=== PATIENT | male | born 1955 | race Caucasian/White ===

== ENCOUNTER 2017-07-11 16:21 | Emergency (ER) | payer MEDICAID ==
[~2017-07-11] VITALS: Ht 170.2 cm; Wt 90.7 kg
[2017-07-11] MEDS ORDERED: Ketorolac 30mg Inj IV ONE (17:00)
[2017-07-11 17:19] LABS: APPEARANCE,URINE CLEAR; BILIRUBIN, URINE NEGATIVE (NEGATIVE); GLUCOSE, URINE (UA) NEGATIVE (NEGATIVE); KETONES,URINE NEGATIVE (NEGATIVE); LEUKOCYTE ESTERASE ,URINE NEGATIVE (NEGATIVE); NITRITE,URINE NEGATIVE (NEGATIVE); PH,URINE 7 (4.5-8.0); PROTEIN,URINE NEGATIVE (NEGATIVE); UROBILINOGEN,URINE 1 MG/DL (0.0-1.0)
[2017-07-11 17:28] LABS: BASOPHILS % (AUTO) 0.6 % (0.0-2.0); EOSINOPHILS % (AUTO) 2.6 % (0.0-3.0); HEMOGLOBIN 15.3 G/DL (14.2-18.0); LYMPHOCYTES % (AUTO) 30.5 % (20.0-45.0); MEAN CORPUSCULAR VOLUME 87 FL (80-99); MONOCYTES % (AUTO) 8.6 % (1.0-10.0); NEUTROPHILS % (AUTO) 57.8 % (45.0-75.0); PLATELET COUNT 175 K/UL (150-450); RED BLOOD COUNT 5.17 M/UL (4.70-6.10); WHITE BLOOD COUNT 6.2 K/UL (4.8-10.8)
[2017-07-11 17:29] LABS: COLOR,URINE YELLOW
[2017-07-11 17:36] LABS: ANION GAP 6 mmol/L (5-15); BLOOD UREA NITROGEN 18 mg/dL (7-18); CALCIUM 9.2 MG/DL (8.5-10.1); CARBON DIOXIDE 31 MMOL/L (21-32); CHLORIDE 105 MMOL/L (98-107); CREATININE 1.2 MG/DL (0.55-1.30); POTASSIUM 3.9 MMOL/L (3.5-5.1); SODIUM 142 MMOL/L (136-145)
[2017-07-11] MEDS ORDERED: BETIMOL5 M2 OP (17:37)
[2017-07-11] MEDS ORDERED: VITAMIN B12 COMPLEX SL (17:37)
[2017-07-11] MEDS ORDERED: VITAMIN D1000 UNI1 ORAL (17:37)
[2017-07-11 17:41] LABS: ALANINE AMINOTRANSFERASE 14 U/L (12-78); ALBUMIN 3.6 G/DL (3.4-5.0); ALBUMIN/GLOBULIN RATIO 0.9 (1.0-2.7); ALKALINE PHOSPHATASE 77 U/L (46-116); ASPARTATE AMINO TRANSFERASE 12 U/L (15-37); BILIRUBIN,TOTAL 0.5 MG/DL (0.2-1.0)
[2017-07-11] MEDS ORDERED: LEVOFLOXACIN500 MG ORAL (18:07)
[2017-07-11] MEDS ORDERED: METRONIDAZOLE500 MG ORAL (18:07)
[2017-07-11 18:31] VITALS: BP 116/76
[2017-07-11 18:35] VITALS: BP 116/76
--- NOTE | 2017-07-11 19:46 | Emergency Room Report ---
"History of Present Illness General Chief Complaint: Abdominal Pain Source: Patient Present Illness HPI Patient is a 61-year-old male presented after increased left lower quadrant pain. Patient is referred by his primary care physician. Patient was noted to have pain for several days. He denies any bloody stools or increased pain with ambulation. He had prior history of diverticulitis. He denies any fever. He reports having some normal bowel movements. Allergies: Coded Allergies: No Known Allergies (Unverified , 07/11/17) Patient History Past Medical History: see triage record Reviewed Nursing Documentation: PMH: Agreed, PSxH: Agreed Review of Systems All Other Systems: negative except mentioned in HPI Physical Exam Vital Signs Date Time Temp Pulse Resp B/P (MAP) Pulse Ox O2 Delivery O2 Flow Rate FiO2 07/11/17 16:29 97.4 79 18 118/81 96 Room Air 97.3 Sp02 EP Interpretation: reviewed, normal General Appearance: normal inspection, well appearing, no apparent distress, alert, GCS 15, non-toxic Head: atraumatic ENT: normal ENT inspection, hearing grossly normal, normal voice Neck: normal inspection, full range of motion, supple, no bony tend Respiratory: normal inspection, lungs clear, normal breath sounds, no respiratory distress, no retraction, no wheezing Cardiovascular #1: regular rate, rhythm, no edema Gastrointestinal: normal inspection, normal bowel sounds, soft, no guarding, no hernia, tenderness - left lower quadrant. Genitourinary: no CVA tenderness Musculoskeletal: normal inspection, back normal, normal range of motion Neurologic: normal inspection, alert, oriented x3, responsive, ground school instructor III-XII nml as tested, speech normal Psychiatric: normal inspection, judgement/insight normal, mood/affect normal Skin: normal inspection, normal color, no rash Medical Decision Making Diagnostic Impression: Primary Impression: Diverticulitis Additional Impression: Liver cyst ER Course Patient presented for abdominal pain. Differential diagnoses included ischemic bowel, appendicitis, perforated viscus, abdominal aortic aneurysm, inferior myocardial infarction, viral gastroenteritis, diverticulitis. Because of complexity of patient's case laboratory testing and imaging studies were ordered. Laboratory studies are notable for normal white blood count. I CT abdomen pelvis read by radiology showed diverticulitis of the the sigmoid and descending colon. There is no evidence of abscess or perforation. The patient is advised to have outpatient ultrasound of liver lesion seen on CT. The patient is advised to follow up with primary care doctor in 1-2 days. Patient is advised to return if any worsening condition or if any changes in status that are concerning. This report is dictated with [employer] offshore diver software which may occasionally lead to discrepancies related to use of this software. Labs Test 07/11/17 16:29 07/11/17 17:08 Urine Color Yellow Urine Appearance Clear Urine pH 7 (4.5-8.0) Urine Specific Hunker 1.010 (1.005-1.035) Urine Protein Negative (NEGATIVE) Urine Glucose (UA) Negative (NEGATIVE) Urine Ketones Negative (NEGATIVE) Urine Occult Blood Negative (NEGATIVE) Urine Nitrite Negative (NEGATIVE) Urine Bilirubin Negative (NEGATIVE) Urine Urobilinogen 1 MG/DL (0.0-1.0) Urine Leukocyte Esterase Negative (NEGATIVE) White Blood Count 6.2 K/UL (4.8-10.8) Red Blood Count 5.17 M/UL (4.70-6.10) Hemoglobin 15.3 G/DL (14.2-18.0) Hematocrit 45.0 % (42.0-52.0) Mean Corpuscular Volume 87 FL (80-99) Mean Corpuscular Hemoglobin 29.7 PG (27.0-31.0) Mean Corpuscular Hemoglobin Concent 34.0 G/DL (32.0-36.0) Red Cell Distribution Width 11.0 % (11.6-14.8) Platelet Count 175 K/UL (150-450) Mean Platelet Volume 7.7 FL (6.5-10.1) Neutrophils (%) (Auto) 57.8 % (45.0-75.0) Lymphocytes (%) (Auto) 30.5 % (20.0-45.0) Monocytes (%) (Auto) 8.6 % (1.0-10.0) Eosinophils (%) (Auto) 2.6 % (0.0-3.0) Basophils (%) (Auto) 0.6 % (0.0-2.0) Sodium Level 142 MMOL/L (136-145) Potassium Level 3.9 MMOL/L (3.5-5.1) Chloride Level 105 MMOL/L (98-107) Carbon Dioxide Level 31 MMOL/L (21-32) Anion Gap 6 mmol/L (5-15) Blood Urea Nitrogen 18 mg/dL (7-18) Creatinine 1.2 MG/DL (0.55-1.30) Estimat Glomerular Filtration Rate > 60 mL/min (>60) Glucose Level 107 MG/DL (74-106) Calcium Level 9.2 MG/DL (8.5-10.1) Total Bilirubin 0.5 MG/DL (0.2-1.0) Aspartate Amino Transf (AST/SGOT) 12 U/L (15-37) Alanine Aminotransferase (ALT/SGPT) 14 U/L (12-78) Alkaline Phosphatase 77 U/L (46-116) Total Protein 7.4 G/DL (6.4-8.2) Albumin 3.6 G/DL (3.4-5.0) Globulin 3.8 g/dL Albumin/Globulin Ratio 0.9 (1.0-2.7) Lipase 107 U/L (73-393) Last Vital Signs Date Time Temp Pulse Resp B/P (MAP) Pulse Ox O2 Delivery O2 Flow Rate FiO2 07/11/17 18:35 97.9 66 20 116/76 95 Room Air Status: improved Disposition: HOME, SELF-CARE Condition: Stable Scripts Metronidazole* (FLAGYL*) 500 Mg Tablet 500 MG ORAL BID, #14 TAB Prov: Hussein Parikh 07/11/17 Levofloxacin (LEVOFLOXACIN*) 500 Mg Tablet 500 MG ORAL DAILY, #10 TAB Prov: Hussein Parikh 07/11/17 Patient Instructions: Diverticulitis, [id number] Additional Instructions: Increase fiber intake. Return for any worsening Hussein Parikh Jul 11, 2017 19:46"
--- NOTE | 2017-07-12 08:20 | Diagnostic Imaging Report ---
Indication: Abdominal pain Technique: CT scan of the abdomen and pelvis was performed from the diaphragms to the symphysis pubis with intravenous contrast material only per specific request of the ordering physician.. 5 mm sections were generated. Axial, coronal, and sagittal images are presented. Dose: Total Dose Length Product - DLP [address] Dose Index - CTDIvol(s) 16.58 mGy. Automated exposure control was utilized for dose reduction. Comparison: 12/23/2007 Findings: Examination demonstrates multiple low density lesions throughout the liver measuring 25 and 10 mm.. Some of these are sharply circumscribed. Others are indeterminate. The gallbladder is collapsed. The spleen is unremarkable. The pancreas is normal. Adrenal glands are normal. The kidneys are normal. Calcification is noted in the aorta. The retroperitoneum is free of adenopathy. Numerous diverticula are noted in the colon. There is minimal pericolonic inflammatory change in the distal descending colon. The colon is normal in caliber. The appendix is not identified. The bladder is unremarkable. Prostate and seminal vesicles are normal. Impression: Diverticulosis with diverticulitis of the distal descending colon. Atherosclerotic change. Multiple hepatic hypodensities. Some of these probably represent cysts. Others are indeterminate. Further evaluation with ultrasound would be helpful for better evaluation of this. The above report is concordant with preliminary reading by [facility] . The CT scanner at [facility] is accredited by the [employer] and the scans are performed using protocols designed to limit radiation exposure to as low as reasonably achievable to attain images of sufficient resolution adequate for diagnostic evaluation.
== END 2017-07-11 18:36 | disposition home or self-care (01) ==
LOC: EMR 17:31
DX: K57.32 Diverticulitis of large intestine without perforation or abscess without bleeding (principal); K76.89 Other specified diseases of liver
CPT/HCPCS: 36415; 74177; 80053; 81003; 83690; 85025; 96374; 99284; J1885; Q9967

== ENCOUNTER 2017-12-31 11:59 | Emergency (ER) | payer MEDICAID ==
[~2017-12-31] VITALS: Ht 160 cm; Wt 90.7 kg
[~2017-12-31 11:59] MED LIST: BETIMOL5 M2 OP; LEVOFLOXACIN500 MG ORAL; METRONIDAZOLE500 MG ORAL; VITAMIN B12 COMPLEX SL; VITAMIN D1000 UNI1 ORAL
--- NOTE | 2017-12-31 12:36 | Emergency Room Report ---
History of Present Illness General Chief Complaint: Earache Source: Patient Present Illness HPI 62-year-old male presents to the emergency department complaining of 7 out of 10 in severity localized right ear pain 2 days. Patient reports foreign body sensation he denies fevers, chills, nausea or vomiting. Patient denies appreciable trauma he reports he's been using a Q-tip trying to clean out his ear. Patient reports pain is now radiating down towards the right side of his neck. His ear discharge. Denies dizziness. Reports some decreased hearing in that ear. Allergies: Coded Allergies: No Known Allergies (Unverified , 07/11/17) Patient History Past Medical History: see triage record Past Surgical History: none Pertinent Family History: none Immunizations: UTD Reviewed Nursing Documentation: PMH: Agreed; PSxH: Agreed Nursing Documentation-PMH Past Medical History: No History, Except For Hx Cardiac Problems: No Hx Hypertension: No Hx Pacemaker: No Hx Asthma: No Hx COPD: No Hx Diabetes: No Hx Cancer: No Hx Gastrointestinal Problems: Yes - diverticulosis Hx Dialysis: No History Of Psychiatric Problem: No Hx Neurological Problems: No Hx Cerebrovascular Accident: No Hx Seizures: No Review of Systems All Other Systems: negative except mentioned in HPI Physical Exam Vital Signs Date Time Temp Pulse Resp B/P (MAP) Pulse Ox O2 Delivery O2 Flow Rate FiO2 12/31/17 12:05 98.0 63 16 123/88 94 Room Air 98.1 Sp02 EP Interpretation: reviewed, normal General Appearance: no apparent distress, alert, GCS 15, non-toxic Head: normocephalic, atraumatic Eyes: bilateral eye normal inspection, bilateral eye PERRL ENT: hearing grossly normal, normal voice, uvula midline, moist mucus membranes , other - Ruptured TM of the right ear, scant dry blood noted, no tragal or external ear tenderness, TM is normal in color, not bulging. Neck: full range of motion, no meningismus, no bony tend Respiratory: lungs clear, normal breath sounds, speaking full sentences Cardiovascular #1: regular rate, rhythm Musculoskeletal: back normal, gait/station normal, normal range of motion, non- tender Neurologic: alert, oriented x3, responsive, motor strength/tone normal, sensory intact, speech normal, grossly normal Psychiatric: judgement/insight normal Skin: normal color, no rash, warm/dry, well hydrated Lymphatic: no adenopathy Medical Decision Making PA Attestation Dr. Barth is my supervising Physician whom patient management has been discussed with. Diagnostic Impression: Primary Impression: Tympanic membrane perforation Qualified Codes: H72.91 - Unspecified perforation of tympanic membrane, right ear ER Course 62-year-old male presents to the emergency department complaining of 7 out of 10 in severity localized right ear pain 2 days. Patient reports foreign body sensation he denies fevers, chills, nausea or vomiting. Patient denies appreciable trauma he reports he's been using a Q-tip trying to clean out his ear. Patient reports pain is now radiating down towards the right side of his neck. His ear discharge. Denies dizziness. Reports some decreased hearing in that ear. Ddx considered but are not limited to OM, OE, mastoiditis, TM perforation, FB Vital signs: are WNL, pt. is afebrile H&PE are most consistent with TM Rupture of the right ear, no evidence of infection. ORDERS: none required at this time, the diagnosis is clinical ED INTERVENTIONS: None required at this time. D/w pt. to D/C q-tip use. DISCHARGE: At this time pt. is stable for d/c to home. With PO ABX. Will provide printed patient care instructions, and any necessary prescriptions. Care plan and follow up instructions have been discussed with the patient prior to discharge. Last Vital Signs Date Time Temp Pulse Resp B/P (MAP) Pulse Ox O2 Delivery O2 Flow Rate FiO2 12/31/17 12:05 98.0 63 16 123/88 94 Room Air 98.1 Disposition: HOME, SELF-CARE Condition: Stable Patient Instructions: Eardrum Perforation Additional Instructions: Take medications as directed. Follow up with a Primary Care Provider in 3-5 days, even if your symptoms have resolved. --Please review list of primary care clinics, if you do not already have a primary care provider Return sooner to ED if new symptoms occur, or current symptoms become worse. - Please note that this Emergency Department Report was dictated using [employer] gat[employer]r technology software, occasionally this can lead to erroneous entry secondary to interpretation by the dictation equipment. Patrica Mejia Dec 31, 2017 12:36
[2017-12-31] MEDS ORDERED: IBUPROFEN400 MG ORAL (12:37)
[2017-12-31] MEDS ORDERED: ACETAMINOPHEN-1 EAC1 ORAL (12:37)
[2017-12-31 13:14] VITALS: BP 143/81
== END 2017-12-31 13:16 | disposition home or self-care (01) ==
LOC: EMR 12:42
DX: H72.91 Unspecified perforation of tympanic membrane, right ear (principal); K57.90 Diverticulosis of intestine, part unspecified, without perforation or abscess without bleeding
CPT/HCPCS: 99283

== ENCOUNTER 2018-06-26 16:32 | Emergency (ER) | payer MEDICAID ==
[~2018-06-26] VITALS: Ht 165.1 cm; Wt 95.3 kg
[~2018-06-26 16:32] MED LIST changes: +ACETAMINOPHEN-1 EAC1 ORAL; +IBUPROFEN400 MG ORAL
[2018-06-26 16:35] VITALS: BP 110/75
[2018-06-26] MEDS ORDERED: VITAMIN D1000 UNI1 ORAL (16:41)
[2018-06-26] MEDS ORDERED: ATORVASTATIN CA40 MG ORAL (16:41)
[2018-06-26] MEDS ORDERED: GABAPENTIN300 MG ORAL (16:41)
[2018-06-26] MEDS ORDERED: ASPIR 8181 MG ORAL (16:41)
[2018-06-26] MEDS ORDERED: Isovue-300 100ml vial INJ PRN (17:00)
[2018-06-26] MEDS ORDERED: Morphine Sulfate 4mg/ml Inj (IV/IM USE ONLY) IVP ONE (17:15)
[2018-06-26 17:23] LABS: APPEARANCE,URINE CLEAR; BILIRUBIN, URINE NEGATIVE (NEGATIVE); COLOR,URINE PALE YELLOW; GLUCOSE, URINE (UA) NEGATIVE (NEGATIVE); KETONES,URINE NEGATIVE (NEGATIVE); LEUKOCYTE ESTERASE ,URINE NEGATIVE (NEGATIVE); NITRITE,URINE NEGATIVE (NEGATIVE); PH,URINE 7 (4.5-8.0); PROTEIN,URINE NEGATIVE (NEGATIVE); UROBILINOGEN,URINE NORMAL MG/DL (0.0-1.0)
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
[2018-06-26 17:27] LABS: BASOPHILS % (AUTO) 1.4 % (0.0-2.0); EOSINOPHILS % (AUTO) 3.4 % (0.0-3.0); HEMATOCRIT 41.7 % (42.0-52.0); HEMOGLOBIN 14.2 G/DL (14.2-18.0); INR 1.1 (0.9-1.1); LYMPHOCYTES % (AUTO) 40.7 % (20.0-45.0); MEAN CORPUSCULAR VOLUME 88 FL (80-99); MONOCYTES % (AUTO) 8.9 % (1.0-10.0); NEUTROPHILS % (AUTO) 45.6 % (45.0-75.0); PLATELET COUNT 153 K/UL (150-450); RED BLOOD COUNT 4.75 M/UL (4.70-6.10); RED CELL DISTRIBUTION WIDTH 11.3 % (11.6-14.8); WHITE BLOOD COUNT 6.4 K/UL (4.8-10.8)
[2018-06-26 17:38] LABS: ANION GAP 7 mmol/L (5-15); BLOOD UREA NITROGEN 13 mg/dL (7-18); CALCIUM 8.9 MG/DL (8.5-10.1); CARBON DIOXIDE 27 MMOL/L (21-32); CHLORIDE 105 MMOL/L (98-107); POTASSIUM 3.3 MMOL/L (3.5-5.1); SODIUM 139 MMOL/L (136-145)
[2018-06-26 17:42] LABS: ALANINE AMINOTRANSFERASE 44 U/L (12-78); ALBUMIN 3.8 G/DL (3.4-5.0); ALBUMIN/GLOBULIN RATIO 1.1 (1.0-2.7); ALKALINE PHOSPHATASE 82 U/L (46-116); ASPARTATE AMINO TRANSFERASE 25 U/L (15-37); BILIRUBIN,TOTAL 0.6 MG/DL (0.2-1.0)
[2018-06-26 18:35] VITALS: BP 112/84
--- NOTE | 2018-06-26 19:01 | Diagnostic Imaging Report ---
EXAM: CT Abdomen and Pelvis With Intravenous Contrast CLINICAL HISTORY: PAIN TECHNIQUE: Axial computed tomography images of the abdomen and pelvis with intravenous contrast. CTDI is 0.15, 18.60 mGy and DLP is 1074 mGy-cm. One or more of the following dose reduction techniques were used: automated exposure control, adjustment of the mA and/or kV according to patient size, use of iterative reconstruction technique. COMPARISON: CT abdomen and pelvis dated 07/11/2017 FINDINGS: Lung bases: Dependent atelectasis. ABDOMEN: Liver: Multiple subcentimeter hypodensities within both hepatic lobes, which are nonspecific. These are unchanged. Gallbladder and bile ducts: Unremarkable. Pancreas: Unremarkable. Spleen: Unremarkable. Adrenals: Unremarkable. Kidneys and ureters: Unremarkable. Stomach and bowel: Question mild wall thickening of the sigmoid colon which may be secondary to under distention. Early colitis versus diverticulitis is not excluded. PELVIS: Appendix: Appendix is unremarkable. Bladder: Unremarkable. Reproductive: Unremarkable as visualized. ABDOMEN and PELVIS: Intraperitoneal space: Unremarkable. Bones/joints: Degenerative changes of the spine. No acute fracture. No dislocation. Soft tissues: Tiny fat-containing umbilical hernia. Vasculature: Vascular calcifications. No abdominal aortic aneurysm. Lymph nodes: Unremarkable. IMPRESSION: Question mild wall thickening of the sigmoid colon which may be secondary to under distention. Early colitis versus diverticulitis is not excluded.
[2018-06-26 19:20] VITALS: BP 108/86
[2018-06-26] MEDS ORDERED: IBUPROFEN600 MG ORAL (19:45)
[2018-06-26] MEDS ORDERED: PEPCID AC20 M2 PO (19:45)
[2018-06-26 19:51] VITALS: BP 108/86
== END 2018-06-26 19:50 | disposition home or self-care (01) ==
LOC: EMR 16:47
DX: R10.9 Unspecified abdominal pain (principal); K76.89 Other specified diseases of liver
CPT/HCPCS: 36415; 74177; 80053; 81003; 83690; 84484; 85025; 85610; 85730; 96374; 96375; 99284; J2270; J2405; Q9967; S0028

== ENCOUNTER 2018-10-27 00:03 | Emergency (ER) | payer MEDICAID ==
[~2018-10-27] VITALS: Ht 162.6 cm; Wt 90.7 kg
[~2018-10-27 00:03] MED LIST changes: +ASPIR 8181 MG ORAL; +ATORVASTATIN CA40 MG ORAL; +GABAPENTIN300 MG ORAL; +IBUPROFEN600 MG ORAL; +PEPCID AC20 M2 PO
[2018-10-27] MEDS ORDERED: NKM (00:10)
--- NOTE | 2018-10-27 00:15 | NUR ---
ED Nurse Note: RECIEVED PT FROM E WITH C/O NECK PAIN AT 8/10 SINCE AM, PT DENIES FALL OR INJURY TO AREA AND DENIES POSSIBLY SLEEPING WRONG, PT RATES PAIN AT 8/10, CONTINUOUS AND ACHING, DENIES CPK SOB, OR ANY OTHER PAIN OR DISCOMFORTS, PT GOWNED AND PLACED ON CARDIAC MONITORING.
--- NOTE | 2018-10-27 00:43 | Emergency Room Report ---
History of Present Illness General Chief Complaint: Neck Pain Source: Patient Present Illness [facility] This is a 63-year-old male with no past medical history. He presents with chief complaint of neck pain and headache. Onset for last 3 days. Started in his shoulder and then to his neck. Now rating up to his head. Pain is 9 out of 10. No nausea no vomiting. Worse with movement. No trauma. No focal deficit. No cough or congestion. [id number] medicine not helping. Allergies: Coded Allergies: No Known Allergies (Unverified , 07/11/17) Patient History Past Medical History: see triage record, old chart reviewed Past Surgical History: none Pertinent Family History: none Social History: Denies: smoking Immunizations: other Reviewed Nursing Documentation: PMH: Agreed; PSxH: Agreed Nursing Documentation-PMH Past Medical History: No History, Except For Hx Cardiac Problems: No Hx Hypertension: No Hx Pacemaker: No Hx Asthma: No Hx COPD: No Hx Diabetes: No Hx Cancer: No Hx Gastrointestinal Problems: Yes - diverticulosis Hx Dialysis: No Hx Neurological Problems: No Hx Cerebrovascular Accident: No Hx Seizures: No Review of Systems Eye: Denies: eye pain, blurred vision ENT: Denies: ear pain, nose congestion, throat swelling Respiratory: Denies: cough, shortness of breath Cardiovascular: Denies: chest pain, palpitations Gastrointestinal: Denies: abdominal pain, diarrhea, nausea, vomiting Musculoskeletal: Denies: back pain, joint pain Skin: Denies: rash Neurological: Reports: headache; Denies: numbness Endocrine: Denies: increased thirst, increased urine Hematologic/Lymphatic: Denies: easy bruising All Other Systems: negative except mentioned in HPI Physical Exam Vital Signs Date Time Temp Pulse Resp B/P (MAP) Pulse Ox O2 Delivery O2 Flow Rate FiO2 10/27/18 00:06 98.1 73 22 125/84 (98) 93 Room Air Vitals normal Sp02 EP Interpretation: reviewed, normal General Appearance: well appearing, no apparent distress, alert Head: normocephalic, atraumatic Eyes: bilateral eye PERRL, bilateral eye EOMI ENT: hearing grossly normal, normal pharynx Neck: tender - diffuse tenderness. Respiratory: chest non-tender, lungs clear, normal breath sounds Cardiovascular #1: regular rate, rhythm, no murmur Gastrointestinal: normal bowel sounds, non tender, no mass, no organomegaly, no bruit, non-distended Musculoskeletal: back normal, gait/station normal, normal range of motion Psychiatric: mood/affect normal Skin: warm/dry Medical Decision Making Diagnostic Impression: Primary Impression: Neck pain Additional Impression: Degenerative disc disease, cervical ER Course Patient with neck pain. CT scan showed severe degenerative changes. No evidence of meningitis. No evidence of dissection. Will discharge home. CT/MRI/US Diagnostic Results CT/MRI/US Diagnostic Results : Imaging Test Ordered: CT C-spine Impression Read by radiologist. Degenerative changes. Last Vital Signs Date Time Temp Pulse Resp B/P (MAP) Pulse Ox O2 Delivery O2 Flow Rate FiO2 10/27/18 00:06 98.1 73 22 125/84 (98) 93 Room Air Status: improved Disposition: HOME, SELF-CARE Condition: Stable Scripts Ibuprofen* (MOTRIN*) 600 Mg Tablet 600 MG ORAL THREE TIMES A DAY, #30 TAB 0 Refills Prov: Renaldo Baker MD 10/27/18 Hydrocodone/Acetaminophen 5-325* (HYDROCODONE/ACETAMINOPHEN 5-325*) 1 Each Tablet 1 TAB ORAL Q6H PRN for For Pain, #15 TAB 0 Refills Prov: Renaldo Baker MD 10/27/18 Additional Instructions: Follow-up with your doctor in a week. If not better, you may need an MRI. Return if symptoms worsen. Renaldo Baker MD Oct 27, 2018 00:43
[2018-10-27] MEDS ORDERED: Morphine Sulfate 4mg/ml Inj (IV USE ONLY) IVP ONE (00:45)
[2018-10-27 01:06] LABS: BASOPHILS % (AUTO) 1.3 % (0.0-2.0); EOSINOPHILS % (AUTO) 2.6 % (0.0-3.0); HEMOGLOBIN 14.6 G/DL (14.2-18.0); LYMPHOCYTES % (AUTO) 33.9 % (20.0-45.0); MEAN CORPUSCULAR VOLUME 85 FL (80-99); MONOCYTES % (AUTO) 7.7 % (1.0-10.0); NEUTROPHILS % (AUTO) 54.5 % (45.0-75.0); PLATELET COUNT 157 K/UL (150-450); RED BLOOD COUNT 4.94 M/UL (4.70-6.10); RED CELL DISTRIBUTION WIDTH 11.3 % (11.6-14.8); WHITE BLOOD COUNT 6.9 K/UL (4.8-10.8)
[2018-10-27 01:10] LABS: ANION GAP 6 mmol/L (5-15); BLOOD UREA NITROGEN 15 mg/dL (7-18); CALCIUM 9.1 MG/DL (8.5-10.1); CARBON DIOXIDE 26 MMOL/L (21-32); CHLORIDE 108 MMOL/L (98-107); CREATININE 0.8 MG/DL (0.55-1.30); POTASSIUM 3.3 MMOL/L (3.5-5.1); SODIUM 140 MMOL/L (136-145)
[2018-10-27] MEDS ORDERED: HYDROCODON-ACE1 EA15 ORAL (01:26)
[2018-10-27] MEDS ORDERED: IBUPROFEN600 MG ORAL (01:26)
--- NOTE | 2018-10-27 02:15 | NUR ---
ED Nurse Note: Pt being d/c to home, awake, alert and orineted x 4, medicated for pain, meds effective with pain level decreasing to 5/10, pt has on soft colar, ambulates well with steady gait, is present to drive pt home, no cp, no sob, iv line and armband removed without complications, pt given f/u info,a fter care instructions and re-verbalizes proper medication administration, nad noted during d/c to home.
[2018-10-27 02:25] VITALS: BP 125/84
--- NOTE | 2018-10-27 09:42 | Diagnostic Imaging Report ---
Indication: Neck pain. Technique: Continuous helical imaging of the cervical spine was obtained transaxially from the skull base to the upper thoracic spine. 2-D coronal and sagittal reformatted images were obtained. Automatic Exposure Control was utilized. Total Dose length Product (DLP): 386.[address] Dose Index Volume (CTDIvol): 20.71 mGy Comparison: None Findings: There is no acute fracture or malalignment identified. There is no soft tissue swelling identified. Moderate uncovertebral arthritis is demonstrated at multiple levels. Some of the intervertebral discs show narrowing and osteophytes. Bones are osteopenic. Mild calcification of the extracranial carotid arteries noted. Impression: No acute injury Moderate spondylosis Atherosclerotic disease [facility] has communicated the preliminary results to the Emergency Department. Their findings are largely concordant with this report. The CT scanner at [facility] is accredited by the [employer] and the scans are performed using dose optimization techniques as appropriate to a performed exam including Automatic Exposure control.
== END 2018-10-27 02:25 | disposition home or self-care (01) ==
LOC: EMR 00:42
DX: M54.2 Cervicalgia (principal); M50.30 Other cervical disc degeneration, unspecified cervical region; R51 Headache; K57.90 Diverticulosis of intestine, part unspecified, without perforation or abscess without bleeding
CPT/HCPCS: 36415; 72125; 80048; 85025; 96374; 96375; 99284; J2270; J2405

== ENCOUNTER 2019-03-06 13:38 | Emergency (ER) | payer MEDICAID ==
[~2019-03-06] VITALS: Ht 165.1 cm; Wt 93.0 kg
[~2019-03-06 13:38] MED LIST changes: +HYDROCODON-ACE1 EA15 ORAL; +NKM
--- NOTE | 2019-03-06 14:20 | NUR ---
ED Nurse Note: Patient walked in to ER from home due to headache and Rt shoulder pain 10/10 that radiates to Rt arm. Patient alert and oriented x4 and amulatory. Skin clean and intact. Calm and cooperative. No acute distress noted at this time.
[2019-03-06 14:29] VITALS: BP 119/81
--- NOTE | 2019-03-06 14:33 | NUR ---
ED Nurse Note: pt went down for CT in stable condition.
--- NOTE | 2019-03-06 14:55 | NUR ---
ED Nurse Note: pt came back from CT in stable condition.
--- NOTE | 2019-03-06 15:46 | Diagnostic Imaging Report ---
EXAM: CT Head Without Intravenous Contrast CLINICAL HISTORY: DIZZY TECHNIQUE: Axial computed tomography images of the head brain without intravenous contrast. CTDI is 12.1 mGy and DLP is 378.7 mGy-cm. One or more of the following dose reduction techniques were used: automated exposure control, adjustment of the mA and or kV according to patient size, use of iterative reconstruction technique. COMPARISON: No relevant prior studies available. FINDINGS: Brain: No intracranial hemorrhage or mass effect. No clear acute large vessel territorial infarct. Mild atrophy. Ventricles: Unremarkable. No ventriculomegaly. Bones joints: Unremarkable. No acute fracture. Soft tissues: Unremarkable. Sinuses: Mild frontoethmoidal mucosal thickening. Mastoid air cells: Unremarkable as visualized. No mastoid effusion. IMPRESSION: No acute intracranial process.
--- NOTE | 2019-03-06 15:49 | Diagnostic Imaging Report ---
EXAM: CT Cervical Spine Without Intravenous Contrast CLINICAL HISTORY: DIZZY TECHNIQUE: Axial computed tomography images of the cervical spine without intravenous contrast. CTDI is 12.1 mGy and DLP is 378.7 mGy-cm. One or more of the following dose reduction techniques were used: automated exposure control, adjustment of the mA and or kV according to patient size, use of iterative reconstruction technique. COMPARISON: 10 27 18. FINDINGS: Vertebrae: No acute fracture. Discs spinal canal neural foramina: Multilevel spondylosis including disc degeneration and facet and uncovertebral arthropathy. Appearance is similar to prior exam. Resulting minimal C3 and C4 retrolisthesis, likewise unchanged. Soft tissues: Unremarkable. IMPRESSION: No fracture or other acute osseous abnormality
--- NOTE | 2019-03-06 15:56 | NUR ---
ED Nurse Note: pt c/o Rt shoulder pain 12/26. ERPA made aware.
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
--- NOTE | 2019-03-06 16:01 | Diagnostic Imaging Report ---
EXAM: XR Right Shoulder Complete, 2 or More Views CLINICAL HISTORY: TRAUMA TECHNIQUE: Two or more views of the right shoulder. COMPARISON: No relevant prior studies available. FINDINGS: Bones joints: Degeneration and osteophyte formation to the right glenohumeral and acromioclavicular joints. No acute fracture. No dislocation. Soft tissues: Unremarkable. IMPRESSION: No fracture or dislocation.
[2019-03-06] MEDS ORDERED: LIDODERM700 M1 TOPIC (16:02)
[2019-03-06] MEDS ORDERED: IBU800 MG PO (16:02)
[2019-03-06] MEDS ORDERED: ROBAXIN-500MG ORAL (16:02)
[2019-03-06 16:14] VITALS: BP 126/74
[2019-03-06] MEDS ORDERED: Methocarbamol 750mg tab ORAL ONE (16:15)
--- NOTE | 2019-03-06 16:15 | NUR ---
ED Nurse Note: Pt cleared by health care Provider for discharge. DC instructions/prescription was given and explained to pt and verbalized understanding of teachings. All medical deviecs such as ID band removed. Pt is AAO x4, ambulatory and left with all personal belongings.
== END 2019-03-06 16:15 | disposition home or self-care (01) ==
LOC: EMR 14:57
DX: G44.009 Cluster headache syndrome, unspecified, not intractable (principal); S13.4XXA Sprain of ligaments of cervical spine, initial encounter; S43.401A Unspecified sprain of right shoulder joint, initial encounter; K57.90 Diverticulosis of intestine, part unspecified, without perforation or abscess without bleeding; V49.9XXA Car occupant (driver) (passenger) injured in unspecified traffic accident, initial encounter; Y92.410 Unspecified street and highway as the place of occurrence of the external cause
CPT/HCPCS: 70450; 72125; 73030; Z7502; 99284

== ENCOUNTER 2020-02-21 09:15 | Emergency (ER) | payer MEDICAID ==
[~2020-02-21] VITALS: Ht 162.6 cm; Wt 90.7 kg
[~2020-02-21 09:15] MED LIST changes: +IBU800 MG PO; +LIDODERM700 M1 TOPIC; +ROBAXIN-500MG ORAL
[2020-02-21 09:28] VITALS: BP 120/75
--- NOTE | 2020-02-21 09:45 | Emergency Room Report ---
History of Present Illness General Chief Complaint: Multiple Trauma/Fall Source: Patient Present Illness HPI Patient is a 62-year-old male who presents for increased right-sided upper extremity pain after recent fall. Patient states he fell yesterday. Reports having increased pain to the right shoulder as well as to the right hand. Denies any forearm pain. Denies any neck pain. States he did not lose con sciousness. He is right-hand dominant. Reports having decreased range of motion to his hand. Had noticed progressive swelling. Patient states he slipped on a wet floor. Decreased range of motion to the right hand. Also had decreased range of motion to the shoulder. Allergies: Coded Allergies: No Known Allergies (Unverified , 07/11/17) COVID-19 Screening Contact w/high risk pt: No Experienced COVID-19 symptoms?: No COVID-19 Testing performed [employer]GER [employer]: No Patient History Past Medical History: see triage record Reviewed Nursing Documentation: PMH: Agreed; PSxH: Agreed Nursing Documentation-PMH Hx Cardiac Problems: No Hx Hypertension: No Hx Pacemaker: No Hx Asthma: No Hx COPD: No Hx Diabetes: No Hx Cancer: No Hx Gastrointestinal Problems: Yes - diverticulosis Hx Dialysis: No Hx Neurological Problems: No Hx Cerebrovascular Accident: No Hx Seizures: No Review of Systems All Other Systems: negative except mentioned in HPI Physical Exam Vital Signs Date Time Temp Pulse Resp B/P (MAP) Pulse Ox O2 Delivery O2 Flow Rate FiO2 02/21/20 09:28 97.5 70 19 120/75 95 Room Air General Appearance: well appearing, no apparent distress, alert, GCS 15 Head: normocephalic, atraumatic ENT: hearing grossly normal, normal voice Neck: full range of motion, supple Respiratory: lungs clear, no respiratory distress, speaking full sentences Cardiovascular #1: normal inspection Gastrointestinal: normal inspection Musculoskeletal: decreased range of mation - Right shoulder, right hand, other - No bony tenderness to the forearm, diffuse mild tenderness and swelling to the hand. Neurologic: alert, oriented x3, normal gait Psychiatric: normal inspection, judgement/insight normal, mood/affect normal Skin: no rash Medical Decision Making Diagnostic Impression: Primary Impression: Proximal humerus fracture Additional Impression: Hand contusion ER Course Patient is presented after a fall. Differential diagnosis include was not limited to fracture, contusion, dislocation among others. X imaging of the hand showed proximal humerus fracture. Patient was noted to have relatively preserved alignment. He was placed in a shoulder immobilizer. Hand x-ray did not show any evidence of fracture. Patient was agreeable with discharge plan. He was advised to follow-up with his primary care physician for orthopedic referral. He is given prescription for pain medications. He was advised to return if worse. The patient is advised to follow up with primary care doctor in 1-2 days. Patient is advised to return if any worsening condition or if any changes in status that are concerning. This report is dictated with [employer] it trainee software which may occasionally lead to discrepancies related to use of this software. Last Vital Signs Date Time Temp Pulse Resp B/P (MAP) Pulse Ox O2 Delivery O2 Flow Rate FiO2 02/21/20 09:32 70 19 Room Air 02/21/20 09:28 97.5 120/75 (90) 95 Status: improved Disposition: HOME, SELF-CARE Condition: Stable Scripts Hydrocodone Bit/Acetaminophen 5-325* (NORCO 5-325 TABLET*) 1 Each Tablet 1 TAB ORAL Q4H PRN for FOR PAIN, #12 TAB 0 Refills Prov: Hussein Parikh MD 02/21/20 Hussein Parikh MD Feb 21, 2020 09:45
[2020-02-21] MEDS ORDERED: NORCO 5-325 TA1 EAC1 ORAL (09:53)
[2020-02-21 10:34] VITALS: BP 125/76
--- NOTE | 2020-02-21 16:09 | Diagnostic Imaging Report ---
Indication: Right hand pain Technique: 3 views right hand Comparison: None Findings: No acute fractures. No dislocations. The joint spaces are preserved. Impression: Negative
--- NOTE | 2020-02-21 16:11 | Diagnostic Imaging Report ---
Indication: Right shoulder pain Technique: 3 views of the right shoulder Comparison: none Findings: There is a nondisplaced fracture of the right humeral neck extending into the greater tuberosity. No dislocations. Impression: Positive for right humeral fracture
== END 2020-02-21 10:34 | disposition home or self-care (01) ==
LOC: EMR 09:49
DX: S42.201A Unspecified fracture of upper end of right humerus, initial encounter for closed fracture (principal); S60.221A Contusion of right hand, initial encounter; W19.XXXA Unspecified fall, initial encounter; Y92.9 Unspecified place or not applicable; K57.90 Diverticulosis of intestine, part unspecified, without perforation or abscess without bleeding
CPT/HCPCS: 73030; 73130; Z7502; 99284